=== PATIENT | female | born 1980 | race Caucasian/White ===

== ENCOUNTER 2021-02-28 11:10 | Emergency (ER) | payer BC ==
[2021-02-28 11:22] VITALS: BP 151/101; PULSE 95; TEMP 98.3; BMI 38.0
== END 2021-02-28 14:32 | disposition home or self-care (01) ==
LOC: JER 11:10
DX: S86.912A Strain of unspecified muscle(s) and tendon(s) at lower leg level, left leg, initial encounter (principal); X50.0XXA Overexertion from strenuous movement or load, initial encounter; Y93.01 Activity, walking, marching and hiking
CPT/HCPCS: 93971-TC; 99284-25